=== PATIENT | male | born 1945 | race Caucasian/White ===

== ENCOUNTER 2018-01-10 11:18 | Emergency (ER) | payer OTHER, BC ==
--- NOTE | 2018-01-10 11:50 | EDPHY ---
HPI/HX/ROS/PE/MDM Narrative: CHIEF COMPLAINT: Left back pain HPI: This patient is a 72 year old male with history of triple laminectomy 07/2016 complaining of left-sided back pain. Last night, he developed left flank pain. He took several Advil, but the pain did not relieve. His discomfort is worse when sitting. Lying down, he rates his pain at 4/10 severity but this increases to 9/10 when standing. This morning, he woke with increased pain. He is visiting from [place] and was unable to fly home today as planned. He denies any unusual or increased activities, and has been here in [place] for two weeks. Yesterday, he had some urinary frequency and urgency. Patient has history of BPH and states this is not uncommon for him. He denies dysuria, hematuria. The patient underwent a triple laminectomy in July 2016, but his pain at that time felt different from today. The patient denies fever, chest pain, shortness of breath, vomiting, diarrhea, or other associated symptoms. REVIEW OF SYSTEMS: Aside from elements discussed in the HPI, a comprehensive 10-point review of systems was reviewed and is negative. PMH: Bicuspid valve replacement. Hip replacement. Triple laminectomy. SOCIAL HISTORY: Visiting from [place]. at bedside. Retired teacher. PHYSICAL EXAM: General:Patient is alert, in no acute distress. ENT:Eyes are normal to inspection. ENT inspection normal. Neck: Normal inspection. Full range of motion. Respiratory:No respiratory distress. Breath sounds normal bilaterally. Cardiovascular: Regular rate and rhythm. Strong peripheral pulses. Normal cap refill. Abdomen: The abdomen is nontender to palpation. There are no peritoneal signs. There are normal bowel sounds. Back: Normal to inspection. Pain over left flank, 10cm off midline above sciatic notch. No tenderness to palpation. Skin: Normal color. No rash. Warm and dry. Extremities: Normal appearance. Full range of motion. Neuro: Oriented x3. Normal motor function. Normal sensory function. ED Course: 72 y/o male presents with left-sided back pain onset yesterday evening. Exam reveals pain over the left flank, 10cm off midline above the sciatic notch. There is no tenderness to palpation. Patient declines pain medication at this time. Plan for CT abdomen/pelvis to rule out kidney stone or other intraabdominal processes, assess spine. 12:[address] Wooten, radiologist. CT negative for acute processes. Evidence of worsening spondylolisthesis. Reassessed patient. Discussed imaging results. Plan to discharge home in good condition with prescription for a Medrol Dosepak as well as Tramadol and Percocet for pain relief. Follow up and return precautions discussed. The patient and his are comfortable with this plan. - Data Points Imaging Results: Imaging Impressions Abdomen/Pelvis CT 01/10/18 11:57 Impression: 1. No acute findings 2. Extensive diverticulosis without evidence of diverticulitis. 3. [ ] degenerative change in the spine with probable mild to moderate spinal canal narrowing at L2-L3. 4. Additional findings as above. Findings discussed with Butch Roman MD on 01/10/2018 at 12:55 p.m. Attention: This CT examination is specifically designed to evaluate patients who are clinically suspected of having acute obstructive uropathy. This examination does not use radiographic contrast and provides only a limited evaluation of the abdomen, pelvis and retroperitoneum. If there is further clinical suspicion for pathological conditions other than obstructive uropathy, a complete CT evaluation of the abdomen and pelvis utilizing intravenous and enteric contrast should be considered. [id number] Imaging: Discussed imaging studies w/ call center consultant Radiologist Laboratory Results: 01/10/18 12:50 Urine Color YELLOW Urine Appearance CLEAR Urine pH 7.0 (5.0-7.5) Ur Specific [place] 1.011 (1.002-1.030) Urine Protein NEGATIVE (NEGATIVE) Urine Ketones TRACE H (NEGATIVE) Urine Blood NEGATIVE (NEGATIVE) Urine Nitrate NEGATIVE (NEGATIVE) Urine Bilirubin NEGATIVE (NEGATIVE) Urine Urobilinogen NEGATIVE EU EU (0.2-1.0) Ur Leukocyte Esterase NEGATIVE (NEGATIVE) Urine Glucose NEGATIVE (NEGATIVE) Medications Given: Discontinued Medications Tramadol HCl (Ultram) 100 mg PO EDNOW ONE Stop: 01/10/18 13:06 Last Admin: 01/10/18 13:21 Dose: 100 mg General Time Seen by Provider: 01/10/18 11:41 Initial Vital Signs: Initial Vital Signs Temperature (C) 36.4 C 01/10/18 11:23 Heart Rate 71 01/10/18 11:23 Respiratory Rate 18 01/10/18 11:23 Blood Pressure 158/100 H 01/10/18 11:23 O2 Sat (%) 95 01/10/18 11:23 O2 Delivery Mode Room Air Allergies/Adverse Reactions: No Known Allergies Allergy (Unverified 01/10/18 11:21) Home Medications: Medication Instructions Recorded Alfuzosin HCl 01/10/18 Aspirin 81mg (*) 01/10/18 Dutasteride 01/10/18 Levothyroxine 01/10/18 Metoprolol Succinate 01/10/18 amLODIPine BESYLATE 01/10/18 methylPREDNISolone [Medrol Dose 1 each PO AD #1 ea 01/10/18 Hira] oxyCODONE/APAP 5/325 [Percocet 5 - 10 mg PO Q4-6PRN PRN #5 tab 01/10/18 5/325] traMADol [Ultram 50 mg (*)] 50 - 100 mg PO Q4 PRN #25 tab 01/10/18 Departure - Departure Disposition: Home, Routine, Self-Care Clinical Impression: Back pain Qualifiers: Back pain location: low back pain Chronicity: acute Back pain laterality: left Sciatica presence: without sciatica Qualified Code(s): M54.5 - Low back pain Condition: Good Instructions: Back Pain (ED) Additional Instructions: 1. Follow up with a route specialist within one week. 2. Return to the emergency department for severe pain, fever, numbness, difficulty walking, change in location or nature of pain or other concerns. 3. Use ibuprofen and Tylenol as directed. Take Percocet or Tramadol as prescribed as needed for severe pain. Take your Medrol Dosepak as prescribed. 4. Try using a heating pad. Adult Pain & Fever Control: We recommend Acetaminophen (Tylenol) and Ibuprofen (Motrin,Advil) for pain and fever control. When fever is high or pain severe, both drugs can be used at the same time, but at different intervals. Please note the time differences. Your dose is: Acetaminophen 650mg every 4 to 6 hours Ibuprofen 600mg every 6-8 hours with food Note: do not take Acetaminophen with Hydrocodone (Vicodin, Lortab) or Oxycodone (Percocet). These medications also contain Acetaminophen. No more than 3000mg of Acetaminophen should be taken in 24 hours (for an adult). Referrals: DOLORES FARRELL [Other] - As per Instructions Phillip Dunlap MD [Medical Doctor] - As per Instructions Stand Alone Forms: Airline Excuse Prescriptions: methylPREDNISolone [Medrol Dose Hira] 1 each PO AD #1 ea oxyCODONE/APAP 5/325 [Percocet 5/325] 5 - 10 mg PO Q4-6PRN PRN #5 tab PRN Reason: Pain, Breakthrough traMADol [Ultram 50 mg (*)] 50 - 100 mg PO Q4 PRN #25 tab PRN Reason: Pain, Moderate Report Scribed for: Butch Roman Report Scribed by: Yumiko Sanchez Date of Report: 01/10/18 Time of Report: 11:53 Physician Review and Approval Statement: Portions of this note were transcribed by an ED scribe. I personally performed the history, physical exam, and medical decision making; and confirm the accuracy of the information in the transcribed note.
[2018-01-10] MEDS ORDERED: traMADol 50 MG TAB PO ONE (13:05)
[2018-01-10 13:28] VITALS: BP 156/97
== END 2018-01-10 13:29 | disposition home or self-care (01) ==
DX: M54.5 Low back pain (principal); Z79.82 Long term (current) use of aspirin